=== PATIENT | male | born 2005 | race Hispanic/Latino ===

== ENCOUNTER 2025-02-08 19:33 | Emergency (ER) | payer SELFPAY ==
[~2025-02-08] VITALS: Ht 162.6 cm; Wt 54.4 kg
--- NOTE | 2025-02-08 19:52 | ERN ---
ED Note History of Present Illness Stated Complaint: POSSIBLE SEIZURE Chief Complaint: Seizure Time Seen by MD: 19:37 Dictation: This is a 19-year-old male who was brought to the emergency room by EMS for a questionable seizure. Family called EMS stating that he has a history of severe polysubstance abuse and he was shaking. EMS found powder substance in his small bag with the patient. Initially apparently patient was somewhat combative eventually he was completely alert oriented x3. During my evaluation he was alert awake oriented answering questions appropriately but stated that he does not recall or remember anything. All he remembers is that his stomach was hurting and he was going to throw up. He also reported nausea no hematemesis or melena no fevers chills or rigors. The girlfriend who came back later furnish that he was with their baby and drank something along with some pills. After which he tensed up appeared to have seizure. He did not fall down and the family thought he was joking. Patient did not divulge what he took to me. Temperature 96.7 pulse 64 respirations 15 blood pressure 96/64 with a pulse oximetry of 97% on room air He admitted to smoking cigarettes, marijuana and also consuming alcohol Allergies: Coded Allergies: No Known Drug Allergies (Unverified Allergy, Unknown, 02/08/25) Past Medical History Past Medical History: No Pertinent History Social History: Smokers, Drugs (Marijuana), ETOH RN Note Reviewed/Agreed w/PFSH: Yes Review of System Dictation Constitutional: Negative for fever,chills, and weight loss Eyes: Negative for injury, pain,redness, and discharge ENT: Negative for injury,pain or swelling Cardiovascular: Negative for chest pain, palpitations, and edema Respiratory: Negative for shortness of breath, cough, and wheezing, Abdomen/GI: Positive for abdominal pain, nausea, vomiting, denied diarrhea, and constipation Back: Negative for injury and pain : Negative for injury, bleeding and discharge MS/Extremity: Negative for injury and deformity Skin: Negative for rash, and discoloration Neuro: Negative for headache, weakness, numbness, tingling, and seizure Psych: Negative for suicide ideation, homicidal ideation, and hallucinations Initial Vital Sign VS Vital Signs Date Time Temp Pulse Resp B/P (MAP) Pulse Ox O2 Delivery O2 Flow Rate FiO2 02/08/25 19:43 96.6 64 15 96/64 97 Room Air 0 02/08/25 19:57 21 Physical Exam Dictation General: awake, alert, NAD Head/Face: Normocephalic, atraumatic Eyes: PERRL, EOMI, vision at baseline ENT: oral cavity clear, TMs clear, no signs of infection Neck: Trachea midline, supple, no nuchal rigidity Cardiovascular: RRR, normal S1/S2, No MRGs, no JVD Respiratory: CTAB, no respiratory distress, No rales or wheezes Abdomen: Soft, non-tender, non-distended, normal bowel sounds, no guarding or rebound. Skin: Warm, dry, normal turgor, no rash MS/Extremity: Pulses equal, no cyanosis, neurovascular intact, FROM Neuro: COAx4, GCS 15, strength 5/5, CN 2-12 intact, normal cerebellar exam, normal gait, Psych: Normal behavior, mood, and affect normal Extremities-trace edema without any palpable cords, Homans sign is negative Results (Laboratory/Radiology) Laboratory/Radiology Laboratory Tests Test 02/08/25 21:22 02/08/25 23:31 White Blood Count 21.4 K/uL (4.8-10.8) H Red Blood Count 5.42 MIL/uL (4.50-6.20) Hemoglobin 15.9 g/dL (14.0-18.0) Hematocrit 47.2 % (42-54) Mean Corpuscular Volume 87.1 fL (80-100) Mean Corpuscular Hemoglobin 29.3 pg (27.0-33.0) Mean Corpuscular Hemoglobin Concent 33.7 g/dL (32.0-36.0) Red Cell Distribution Width 13.2 % (11.0-15.5) Platelet Count 383 K/uL (130-400) Mean Platelet Volume 9.7 fL (7.5-10.5) Immature Granulocyte % (Auto) 0.7 % (0-1) Neutrophils (%) (Auto) 90.1 % (40.0-77.0) H Lymphocytes (%) (Auto) 3.7 % (21.0-51.0) L Monocytes (%) (Auto) 5.3 % (3.0-13.0) Eosinophils (%) (Auto) 0.0 % (0.0-8.0) Basophils (%) (Auto) 0.2 % (0.0-5.0) Neutrophils # (Auto) 19.3 K/uL (1.8-7.7) H Lymphocytes # (Auto) 0.8 K/uL (1.0-4.8) L Monocytes # (Auto) 1.1 K/uL (0.1-1.0) H Eosinophils # (Auto) 0.00 K/uL (0.00-0.70) Basophils # (Auto) 0.04 K/uL (0.00-0.20) Absolute Immature Granulocyte (auto 0.14 K/uL (0-1) Nucleated Red Blood Cells 0.0 % (0.0-0.19) White Cell Morphology Comment See comments Sodium Level 135 mmol/L (136-145) L Potassium Level 3.6 mmol/L (3.5-5.1) Chloride Level 95 mmol/L (101-111) L Carbon Dioxide Level 28 mmol/L (21-32) Blood Urea Nitrogen 14 mg/dL (7-18) Creatinine 1.3 mg/dL (0.5-1.3) Glomerular Filtration Rate Calc 81 mL/min (>90) Random Glucose 103 mg/dL (70-105) Total Calcium 9.7 mg/dL (8.5-10.1) Total Creatine Kinase 370 U/L (21-232) H Lipase 19 U/L (16-77) Urine Color LIGHT-YELLOW (YELLOW) Urine Appearance CLEAR (CLEAR) Urine pH 5.5 (5.0-8.0) Urine Specific [place] 1.008 (1.001-1.031) Urine Protein 30 mg/dL (NEGATIVE) H Urine Glucose (UA) NEGATIVE mg/dL (NEGATIVE) Urine Ketones 5 mg/dL (NEGATIVE) H Urine Occult Blood SMALL (NEGATIVE) H Urine Nitrate NEGATIVE (NEGATIVE) Urine Bilirubin NEGATIVE mg/dL (NEGATIVE) Urine Urobilinogen 0.2 mg/dL (0.2-1.0) Urine Leukocyte Esterase NEGATIVE Dorie/uL Urine RBC 0-1 /HPF (0-1) Urine WBC 2-5 /HPF (0-1) H Urine Bacteria RARE /HPF (None Seen) Urine Opiates Screen NEGATIVE (NEGATIVE) Urine Barbiturates Screen NEGATIVE (NEGATIVE) Urine Phencyclidine Screen NEGATIVE (NEGATIVE) Urine Amphetamines Screen NEGATIVE (NEGATIVE) Urine Benzodiazepines Screen POSITIVE (NEGATIVE) H Urine Cocaine Screen NEGATIVE (NEGATIVE) Urine Marijuana (THC) Screen POSITIVE (NEGATIVE) H Labs Reviewed?: Yes ED Course ED Course Orders Procedure Category Date Status Time Cbc With Differential LAB 02/08/25 Complete 19:47 Ketorolac PHA 02/08/25 Complete Tromethamine 15mg/Ml 20:00 Ondansetron 4mg Inj PHA 02/08/25 Complete (Zofran 4mg Inj) 20:00 Creatine Kinase, Total LAB 02/08/25 Complete 19:47 Lipase LAB 02/08/25 Complete 19:47 Basic Metabolic Panel LAB 02/08/25 Complete 19:47 Drug Screen Urine LAB 02/08/25 Complete 19:47 0.9%Nacl 1000ml (Ns PHA 02/08/25 Complete 1000ml) 21:30 Ct Head/Brain W/O CT 02/08/25 Resulted Contrast 21:56 Urinalysis Profile LAB 02/08/25 Complete 23:21 Current Medications Medications (Trade) Dose Ordered Sig/Tyson Route PRN Reason Start Time Stop Time Status Last Admin Dose Admin Ketorolac Tromethamine (toRADol) 15 mg ONCE ONCE IV 02/08/25 20:00 02/08/25 20:02 DC 02/08/25 21:51 Ondansetron HCl (zoFRAN 4MG INJ) 4 mg ONCE ONCE IVP 02/08/25 20:00 02/08/25 20:02 DC 02/08/25 21:49 Sodium Chloride 1,000 ml @ 0 mls/hr ONCE ONCE IV 02/08/25 21:30 02/08/25 21:31 DC 02/08/25 21:41 Vital Signs Date Time Temp Pulse Resp B/P (MAP) Pulse Ox O2 Delivery O2 Flow Rate FiO2 02/08/25 23:05 76 19 139/70 100 Room Air* 0 02/08/25 22:55 72 17 121/58 100 Room Air* 0 21 02/08/25 21:59 74 16 118/64 100 Room Air* 0 02/08/25 20:45 70 17 105/60 100 Room Air* 0 02/08/25 19:57 97.7 67 17 95/89 100 Room Air* 0 21 02/08/25 19:43 96.6 64 15 96/64 97 Room Air 0 We will perform diagnostic labs, advanced imaging and administer medications according to the patient's complaint. Once the results are available, will review and personally interpreted the labs to rule out any acute life- threatening emergency the trach require immediate intervention and treatment. I will then re-evaluate the patient after treatment and diagnostic exams have return to determine whether the patient requires any further testing, can safely be discharged home or need further admission to hospital for additional treatment and evaluation. 9:08 p.m. labs still have not been drawn yet reminded the nurse 9:55 [place] [address] BNP 7 is within normal limits except for a CK of 370. Urinalysis and UDS is still pending [address] scan of the head is negative for any acute intracranial abnormali ty. 11:24 p.m. urinalysis and UDS is still pending reminded RN. Patient is very awake alert oriented x4 not in any acute distress and his girlfriend is also at bedside I had a long discussion with the patient and his girlfriend about possibly even if he did have a mild seizure activity even be related to his substance abuse. CT scan of the head is negative at this time and he should abstain from recreational drugs to avoid any further comorbidities and complications. Patient never had any history of seizures and there is no indication for antiepileptic at this time Urinalysis is negative for any infection. UDS is positive for benzodiazepines and THC I counseled him extensively on abstinence of substance and recreational drugs. Medical Decision Making MDM MDM: Differential diagnosis: Substance intoxication, acute metabolic encephalopathy, true seizure, pseudo-seizure, intracranial abnormality Rationale: Tests considered and ordered secondary to shared decision making include: Previous outside records reviewed: Old ER visits. Risk of complication and/or morbidity or mortality of patient management: None Medications-Per medication reconciliation Need for hospitalization: Patient does not meet criteria for hospitalization. Need for emergency major/minor surgery: No There are no social concerns with this patient. Prescription drug management Prescriptions will include symptomatic care Patient's prior external medical records from other ER visits were reviewed by me as indicated. Prior testing and results from previous visits were reviewed. Prior tests were taken into account with medical decision making and resource utilization, independent historian/historians were used to obtain complete medical history. I independently interpreted the test that were performed, results were reviewed by me and considered findings on radiology if ordered. Medical management and examination interpretation discussions were had by me with other qualified healthcare professionals as indicated for the patient's care. Problem List Problem List: (1) Acute metabolic encephalopathy (2) Seizure-like activity (3) Polysubstance abuse DX & DISP Disposition: Discharge Departure Impression: Primary Impression: Acute metabolic encephalopathy Additional Impressions: Seizure-like activity, Polysubstance abuse Condition: Stable Additional Instructions: Patient and the caregiver have been informed of all the diagnostic tests and the imaging conducted during the today's visit to the emergency room and has verbalized understanding of the results I have personally reviewed and interpreted all diagnostic exams performed here in the ER today as well as the vital signs documented by the nursing staff. The patient is now being discharged to home and should follow up with the primary care physician or the s pecialist as directed by the ER staff. Follow-up with primary care provider in 1 to 2 days. Take medications as directed here in the emergency room. Okay to continue home medications unless otherwise discussed during your visit in the emergency room today. Return to your nearest emergency room if symptoms worsen or if there is no improvement. Call 911 if you need immediate assistance. Take Tylenol or Motrin [id number] as needed and if no contraindications are present. Increase oral hydration. A wound culture or urine culture was ordered here in the emergency room department please follow-up with primary care provider and advise them to get repeat ports from our facility. If you had any Cesario wrap/splints that were applied here, please do not remove them until you see your primary care or specialty. JAVID FOLEY MD Feb 08, 2025 19:52
--- NOTE | 2025-02-08 20:14 | NUR ---
GAYLE PROVIDED FOR UA COLLECTION AT THIS TIME
[2025-02-08 21:28] LABS: BASOPHILS # (AUTO) 0.04 K/uL (0.00-0.20); BASOPHILS % (AUTO) 0.2 % (0.0-5.0); HEMATOCRIT 47.2 % (42-54); IMMATURE GRANULOCYTE ABSOLUTE 0.14 K/uL (0-1); LYMPHOCYTES # (AUTO) 0.8 K/uL (1.0-4.8); LYMPHOCYTES % (AUTO) 3.7 % (21.0-51.0); MEAN CORPUSCULAR HEMOGLOBIN 29.3 pg (27.0-33.0); MEAN CORPUSCULAR HGB CONC 33.7 g/dL (32.0-36.0); MEAN CORPUSCULAR VOLUME 87.1 fL (80-100); MONOCYTES # (AUTO) 1.1 K/uL (0.1-1.0); MONOCYTES % (AUTO) 5.3 % (3.0-13.0); NEUTROPHILS # (AUTO) 19.3 K/uL (1.8-7.7); NEUTROPHILS % (AUTO) 90.1 % (40.0-77.0); PLATELET COUNT (AUTO) 383 K/uL (130-400); RED BLOOD CELL COUNT(AUTO) 5.42 MIL/uL (4.50-6.20); RED CELL DISTRIBUTION WIDTH 13.2 % (11.0-15.5); WHITE BLOOD COUNT (AUTO) 21.4 K/uL (4.8-10.8)
[2025-02-08] MEDS: 0.9%NACL 1000ML 1,000 ML IV ONE (21:41)
[2025-02-08 21:45] LABS: CREATININE 1.3 mg/dL (0.5-1.3); POTASSIUM 3.6 mmol/L (3.5-5.1)
[2025-02-08] MEDS: ondanSETRON 4MG INJ IVP ONE (21:49)
[2025-02-08] MEDS: ketOROlac 15MG/ML VIAL (15MG/ML) IV ONE (21:51)
--- NOTE | 2025-02-08 22:40 | NUR ---
LEFT FOR CT SCAN AT THIS TIME, PT SHOWS NO SIGNS OF DISTRESS.
--- NOTE | 2025-02-08 22:49 | HMCIMG ---
CT HEAD/BRAIN W/O CONTRAST HISTORY: New onset seizure COMPARISON: None TECHNIQUE: Multiple sequential axial images of the head were obtained from the base of the skull through vertex. Patient was not given contrast through intravenous route. FINDINGS: The ventricles and extraventricular CSF spaces are nondilated for patient's age. There is no midline shift, mass effect or herniation. No acute intracranial bleed is seen. Visualized portion of the paranasal sinuses are grossly within normal limits. IMPRESSION: 1. No acute intracranial bleed is seen. CT was performed with one or more following dose reduction techniques: automated exposure control, adjustment of the mA and kv according to patient's size, or use of a iterative reconstruction technique.
--- NOTE | 2025-02-08 22:59 | NUR ---
PT BACK FROM CT.
--- NOTE | 2025-02-08 23:00 | NUR ---
PER PT REPORTED THAT URINE SMAPLE WAS GIVEN TO AN EMPLOYEE. ED RN CALLED LAB TO CONFIRM IF URINE WAS RECEIVED. PER LAB NO URINE SAMPLE RECEIVED AT THIS TIME. PT WAS EDUCATED ABOUT THE IMPORTANCE OF A URINE SAMPLE AT THIS TIME.
[2025-02-08 23:42] LABS: APPEARANCE,URINE CLEAR (CLEAR); BILIRUBIN,URINE NEGATIVE (NEGATIVE); COLOR,URINE LIGHT-YELLOW (YELLOW); GLUCOSE, URINE (UA) NEGATIVE (NEGATIVE); KETONES,URINE 5 mg/dL (NEGATIVE); LEUKOCYTE ESTERASE ,URINE NEGATIVE Leu/uL (NEGATIVE); NITRATE,URINE NEGATIVE (NEGATIVE); OCCULT BLOOD,URINE SMALL (NEGATIVE); PH,URINE 5.5 (5.0-8.0); PROTEIN,URINE 30 mg/dL (NEGATIVE); UROBILINOGEN,URINE 0.2 mg/dL (0.2-1.0)
[2025-02-08 23:43] LABS: ADD UA MICROSCOPIC YES
[2025-02-08 23:46] LABS: BACTERIA,URINE RARE /HPF (None Seen); MUCUS,URINE RARE LPF (None Seen); RBC,URINE 0-1 /HPF (0-1)
[2025-02-08 23:49] LABS: AMPHET/METH SCREEN,URINE NEGATIVE (NEGATIVE); BARBITURATE SCREEN, URINE NEGATIVE (NEGATIVE); BENZODIAZEPINES SCREEN,URINE POSITIVE (NEGATIVE); CANNABINOID SCREEN,URINE POSITIVE (NEGATIVE); COCAINE SCREEN,URINE NEGATIVE (NEGATIVE); OPIATE SCREEN,URINE NEGATIVE (NEGATIVE); PHENCYCLIDINE SCREEN,URINE NEGATIVE (NEGATIVE)
[2025-02-09 00:40] VITALS: BP 128/89; PULSE 60; RESP 18; TEMP 97.1; O2SAT 100
== END 2025-02-09 00:42 | disposition home or self-care (01) ==
LOC: EDH 19:33
DX: G93.41 Metabolic encephalopathy (principal); F19.10 Other psychoactive substance abuse, uncomplicated; R56.9 Unspecified convulsions; F17.200 Nicotine dependence, unspecified, uncomplicated
CPT/HCPCS: 99285; 96374; 70450; 96375; 82550; 80048; 80305; 83690; 85025; 36415; 81001; J1885; J2405